=== PATIENT | male | born 1930 | race Asian ===

== ENCOUNTER → 2016-03-07 | Outpatient (CLI) | payer MEDICARE, MEDICAID ==
[~2016-03-07] MED LIST: ATORVASTATIN CA20 MG ORAL; CELEBREX200 MG ORAL; COLACE100 MG PO; DETROL LA2 MG ORAL; DETROL LA4 MG ORAL; GLUCOPHAGE500 MG PO; IMDUR30 MG PO; MEGESTROL ACETA20 MG ORAL; NORVASC5 MG PO; PLAVIX75 MG PO; TRILIPIX45 MG PO
--- NOTE | 2016-03-07 12:49 | Diagnostic Imaging Report ---
Indications: COUGH Technique: Portable AP chest Findings: Comparison: None Lung volumes slightly asymmetric, right greater left. Mildly increased interstitial markings in both lung bases. Linear density left lung base. Lungs otherwise clear. Cardiac silhouette upper limits of normal in size. Pulmonary vasculature within normal limits. No pleural abnormalities. Aortic arch mildly calcified. Mild dextroscoliosis. Degenerative changes suggested in the thoracic, lower cervical spine. IMPRESSION: Pulmonary bibasal interstitial prominence, nonspecific, acuity indeterminate, suspect chronicity Subsegmental atelectasis versus scarring left lung base with mild volume loss Borderline cardiomegaly Aortosclerosis Degenerative spondylosis
== END | disposition home or self-care (01) ==
LOC: RAD 12:08
DX: I10 Essential (primary) hypertension (principal); M47.899 Other spondylosis, site unspecified; I70.0 Atherosclerosis of aorta
CPT/HCPCS: 71020

== ENCOUNTER 2017-07-22 10:12 | Outpatient (CLI) | payer MEDICARE, MEDICAID ==
[2017-07-22] MEDS ORDERED: OXYBUTYNIN CHLOR5 M1 ORAL (10:39)
[2017-07-22] MEDS ORDERED: MILK OF MA400 MG/51 ORAL (10:41)
[2017-07-22] MEDS ORDERED: TYLENOL EXTRA500 MG ORAL (10:41)
[2017-07-22 10:42] VITALS: BP 123/70
--- NOTE | 2017-07-23 09:56 | GI Initial Consult Note ---
History of Present Illness General Date patient seen: July 22, 2017 Time patient seen: 10:00 Referring physician: JOHNY Reason for Consultation: DYSPHAGIA Present Illness HPI 87 year old female patient known to us last seen in 2013 presents today with c/ o of possible dysphagia with solid food x 1 year. Last EGD/colonoscopy was performed in 2011. In addition, the patient has complaint of constipation. Denies any unintentional weight loss or changes in dietary habits. No signs of abuse or neglect. Patient is not fall risk. Home Meds Reported Medications Magnesium Hydroxide* (MILK OF MAGNESIA*) 400 Mg/5 Ml Oral.susp, 30 ML ORAL PRN, ML 07/22/17 Acetaminophen* (TYLENOL EXTRA STRENGTH*) 500 Mg Tablet, 500 MG ORAL Q6H PRN for Mild Pain/Temp > 100.5, TAB 0 Refills 07/22/17 Oxybutynin Chloride (OXYBUTYNIN CHLORIDE) 5 Mg Tablet, 5 MG ORAL DAILY, #30 TAB 0 Refills 07/22/17 Atorvastatin Calcium* (ATORVASTATIN CALCIUM*) 20 Mg Tablet, 20 MG ORAL BEDTIME, TAB 12/22/12 Docusate Sodium* (COLACE*) 100 Mg Capsule, 100 MG PO PRN, #10 CAP Take 1 capsule by mouth twice a day to soften stools. 12/16/11 Clopidogrel Bisulfate* (PLAVIX*) 75 Mg Tablet, 75 MG PO DAILY, #10 TAB Take 1 tablet by mouth daily. 12/16/11 Isosorbide Mononitrate* (IMDUR*) 30 Mg Tab.er.24h, 30 MG PO TID 12/16/11 Metformin Hcl* (GLUCOPHAGE*) 500 Mg Tablet, 500 MG PO TID, #10 TAB Take 1 tablet by mouth every day. 12/16/11 Amlodipine Besylate (Norvasc) 5 Mg Tab, 5 MG PO DAILY, #10 TAB Take 1 tablet by mouth every day. 12/16/11 Discontinued Reported Medications Megestrol Acetate (Megestrol Acetate) 20 Mg Tab, 20 MG ORAL DAILY, #10 TAB 0 Refills 12/22/12 Celecoxib* (CELEBREX*) 200 Mg Capsule, 200 MG ORAL DAILY 12/22/12 Tolterodine Tartrate (DETROL LA) 4 Mg Cap.er.24h, 4 MG ORAL DAILY 12/22/12 Tolterodine Tartrate (DETROL LA) 2 Mg Cap.er.24h, 2 MG ORAL DAILY 12/22/12 Fenofibric Acid (Choline) (TRILIPIX) 45 Mg Capsule.dr, 45 MG PO DAILY 12/16/11 Med list reviewed/reconciled: Yes Allergies: Coded Allergies: No Known Allergies (Unverified , 12/16/11) Patient History History Provided By: Patient, Medical Record PMH Narrative HTN DM HLD Past Surgical History: Appendectomy Social History: Denies: smoking, alcohol use, drug use, other Review of Systems All Other Systems: negative except mentioned in HPI Physical Exam Vital Signs Date Time Temp Pulse Resp B/P (MAP) Pulse Ox O2 Delivery O2 Flow Rate FiO2 07/22/17 10:42 97.2 81 16 123/70 97 97.2 Sp02 EP Interpretation: reviewed, normal General Appearance: well appearing, no apparent distress, alert Head: normocephalic EENT: PERRL/EOMI, normal ENT inspection Neck: supple Respiratory: normal breath sounds, no respiratory distress Cardiovascular: normal rate Gastrointestinal: normal inspection, non tender, soft, normal bowel sounds, non -distended Rectal: deferred Genitourinary: no CVA tenderness Musculoskeletal: normal inspection, back normal Neurologic: normal inspection, alert, oriented x3, responsive Psychiatric: normal inspection, judgement/insight normal, memory normal Skin: normal inspection, normal color, no rash, warm/dry, palpation normal, well hydrated Lymphatic: normal inspection, no adenopathy GI: Plan Problems: (1) HTN (hypertension) (2) Diabetes mellitus (3) Dysphagia (4) Constipation (5) HLD (hyperlipidemia) Plan [facility]agram [facility]. [facility] after imaging study Seen with Dr. Long. Thank you for this patient referral. The patient was seen and examined at bedside and all new and available data was reviewed in the patients chart. I agree with the above findings, impression and plan. (Patient seen earlier today. Signature stamp does not reflect patient encounter time.). - MD Mary Solis,[facility] July 23, 2017 09:56
== END 2017-07-22 10:45 | disposition home or self-care (01) ==
LOC: PAN 10:12
DX: R13.10 Dysphagia, unspecified (principal); I10 Essential (primary) hypertension; E11.9 Type 2 diabetes mellitus without complications; K59.00 Constipation, unspecified; E78.5 Hyperlipidemia, unspecified; Z79.84 Long term (current) use of oral hypoglycemic drugs
CPT/HCPCS: 99202

== ENCOUNTER 2017-08-05 08:37 | Outpatient (CLI) | payer MEDICARE, MEDICAID ==
[~2017-08-05 08:37] MED LIST changes: +MILK OF MA400 MG/51 ORAL; +OXYBUTYNIN CHLOR5 M1 ORAL; +TYLENOL EXTRA500 MG ORAL
--- NOTE | 2017-08-05 11:58 | Diagnostic Imaging Report ---
Indication: Reason For Exam: DYSPHAGIA Technique: Patient ingested effervescent granules, oral thick and thin liquid barium, both upright and prone, and rapid sequence spot images and overhead images were obtained. Total fluoroscopy time 0.8 minutes. Total dose area product 85 dGycm2 Comparison: none Findings: There is mild esophageal dysmotility, particularly distally. No strictures, filling defects, or ulcers demonstrated. There is fairly prompt emptying of esophageal contents. No gastroesophageal reflux was observed fluoroscopically. Single spot image of the stomach is unremarkable. 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
== END 2017-08-05 10:37 | disposition home or self-care (01) ==
LOC: RAD 08:37
DX: R13.10 Dysphagia, unspecified (principal)
CPT/HCPCS: 74220

== ENCOUNTER 2017-08-11 13:17 | Outpatient (CLI) | payer MEDICARE, MEDICAID ==
--- NOTE | 2017-08-11 15:35 | GI Progress Note ---
Assessment/Plan Problems: (1) Esophageal dysmotility ICD Codes: K22.4 - Dyskinesia of esophagus SNOMED: 565486009 (2) Dysphagia ICD Codes: R13.10 - Dysphagia, unspecified SNOMED: 13689145, 818097190 (3) Diabetes mellitus ICD Codes: E11.9 - Type 2 diabetes mellitus without complications SNOMED: 27827805 (4) Constipation ICD Codes: K59.00 - Constipation, unspecified SNOMED: 95446926 Status: stable Status Narrative Seen with Dr. Long. Assessment/Plan Esophogram reviewed >> mild esophageal dysmotility may need swallow evaluation dietary changes education given trial of trulance RTC PRN The patient was seen and examined at bedside and all new and available data was reviewed in the patients chart. I agree with the above findings, impression and plan. (Patient seen earlier today. Signature stamp does not reflect patient encounter time.). - Joce Long MD Subjective Subjective constipation, linzess not working still has problems swallowing PO Objective T 97.6 BP 121/77 P 84 97 RA General Appearance: WD/WN, no apparent distress, alert Cardiovascular: normal rate Respiratory/Chest: normal breath sounds, no respiratory distress Abdominal Exam: normal bowel sounds, non tender, soft Extremities: normal range of motion, non-tender Real Hernandez NP Aug 11, 2017 15:35
== END 2017-08-11 13:47 | disposition home or self-care (01) ==
LOC: PAN 13:17
DX: K22.4 Dyskinesia of esophagus (principal); R13.10 Dysphagia, unspecified; E11.9 Type 2 diabetes mellitus without complications; K59.00 Constipation, unspecified
CPT/HCPCS: 99211